=== PATIENT | male | born 1995 | race Caucasian/White ===

== ENCOUNTER 2019-04-30 07:06 | Day surgery (SDC) | payer MEDICAID, SELFPAY ==
--- NOTE | 2019-04-24 09:33 | EKG12_ITS ---
Test Reason : PREOP Blood Pressure : / mmHG Vent. Rate : 056 BPM Atrial Rate : 056 BPM P-R Int : 140 ms QRS Dur : 092 ms QT Int : 394 ms P-R-T Axes : 024 069 041 degrees QTc Int : 380 ms Sinus bradycardia Nonspecific T wave abnormality Abnormal ECG Confirmed by JANINE MARTINEZ, GIULIA ([id number]), makeup editor LILY MUÑIZ ([id number] on 04/26/2019 11:02:23 AM Referred By: Arnold Thayer Confirmed By:GIULIA MEHTA MD
[2019-04-24 11:22] LABS: Hematocrit 48.2 % (40-54); Hemoglobin 16.2 g/dL (13.0-16.5); Mean Corp Hgb Conc 33.6 g/dL (32-36); Mean Corpuscular Hgb 33.9 pg (27.0-32.0); Mean Corpuscular Volume 100.8 fL (80-94); Mean Platelet Vol. 9.8 fl (6.2-12.0); Platelet Count 268 K/mm3 (150-450); RBC Distribution Width CV 11.8 % (11.6-14.6); RBC Distribution Width SD 44.2 fl (35.1-43.9); Red Blood Count 4.78 M/mm3 (4.6-6.2); White Blood Count 6.7 K/mm3 (4.4-11.0)
[2019-04-24 11:54] LABS: Anion Gap 3 (5-15); BUN 18 mg/dL (7-18); BUN/Creat Ratio 14.9 RATIO (10-20); Calcium,Total 9.6 mg/dL (8.5-10.1); Chloride 106 mmol/L (98-107); Creatinine, Serum 1.21 mg/dL (0.70-1.30); EST Glomerular Filtration Rate 78 mL/min (>60); Est Glom Filt Rate - Afr Amer 95 mL/min (>60); Glucose 78 mg/dL (74-106); Sodium Level 140 mmol/L (136-145)
[2019-04-30] VITALS (7 sets, daily range): BP systolic 118–137; BP diastolic 77–90; PULSE 80–108; RESP 16; TEMP 36.3–37.1; O2SAT 91–100; BMI 27.9
[2019-04-30] MEDS: Lactated Ringers 1,000 ML 100 ML IV (08:02)
--- NOTE | 2019-04-30 08:18 | DCINST_ITS ---
You will use the following diet at home:: No restrictions Discharge Activity: May not drive while taking narcotic pain medications. Call your doctor if your incision/area has: Increased Pain/ Swelling Additional Dressing/Incision Instructions:: nasal saline to both nostrils 5 times daily. mupirocin ointment to nostrils and incision twice daily. keep bridge of nose dry, except get it very wet the morning of your follow up appointment. sleep with head of bed elevated. Allergies/Adverse Reactions: Allergies No Known Allergies Allergy (Verified 04/30/19 07:43) Medications to take at Discharge Fluticasone 0.05% [Flonase Nasal [place]] 1 spray NASAL DAILY PRN 04/23/19 Multivitamin [Multiple Vitamins] 1 ea PO DAILY 04/23/19 Ranitidine HCl [Zantac] 150 mg PO BID 04/23/19 Hydrocodone/Acetaminophen [[place] 5-325 Tablet] 1 ea PO Q6H PRN 5 Days #20 tab 04/30/19 Smz/Tmp Ds [Bactrim Ds] 1 tab PO BID #12 tab 04/30/19 The following prescriptions were given: Smz/Tmp Ds [Bactrim Ds] 1 tab PO BID #12 tab Prescription Printed Hydrocodone/Acetaminophen [[place] 5-325 Tablet] 1 ea PO Q6H PRN 5 Days #20 tab PRN Reason: Pain Score 1-10/10 Prescription Printed Orders to be completed after discharge: 12 Lead EKG [[facility]] Time Frame: 04/23/19, Facility: [facility], Location: Cardiovascular Services Basic Metabolic Profile (BMP) Time Frame: 04/23/19, Facility: [facility], Location: Laboratory CBC-Complete Blood Cnt No Diff Time Frame: 04/23/19, Facility: [facility], Location: Laboratory Primary Care Physician: Aren Mejia MD [Primary Care Provider] - Test Results: Test results from this visit will be discussed in further detail at your follow- up appointment, if applicable. Please Follow Up With: Arnold Thayer MD When: 1 week
--- NOTE | 2019-04-30 08:22 | PCM.OPRPT ---
Problem List (1) Nasal congestion Status: Chronic (2) Nasal septal deviation Status: Chronic (3) Nasal turbinate hypertrophy Status: Chronic (4) Incompetent nasal valve Status: Chronic (5) Closed fracture of nasal bone Status: Chronic Report of Operation Date of Procedure: 04/30/19 Pre-Operative Diagnosis: 1. nasal congestion. 2. closed fracture nasal boned. 3. internal nasal valve collapse, right and left. 4. nasal septal deviation. 5. inferior turbinate hypertrophy Post-Operative Diagnosis: 1. nasal congestion. 2. closed fracture nasal boned. 3. internal nasal valve collapse, right and left. 4. nasal septal deviation. 5. inferior turbinate hypertrophy Surgery/Procedure Performed:: 1. open septorhinoplasty. 2. correction internal nasal valve collapse, right and left. 3. submucous resection inferior turbinates. 4. open reduction nasal bone fracture Type of Anesthesia:: General Description of Procedure: on the day of the procedure, after appropriate informed consent was obtained, the patient was brought to the operating room and placed in supine position on the operating table. he was placed under general endotracheal anesthesia by the anesthesiologist. the endotracheal tube was secured, tegaderm was placed on the eyes. the table was rotated 90 degrees toward the surgeon. the nose was injected with lidocaine/epinephrine. the face was prepped and draped in sterile fashion. the bilateral nasal cavities were decongested with oxymetazoline-soaked pledgets. an inverted v columellar incision was made with a [place] blade. this traversed into right and left marginal incisions using three point retraction and an iris scizzor. the right and left scroll region and the upper lateral cartilages were dissected with an iris scizzor. the medial crura were lateralized and the anterior septal angle was found. submucoperichondrial flaps were raised on the right and left using a [place] elevator. this was taken posteriorly to the bony/cartilaginous angle and inferiorly to the maxillary crest. the upper lateral cartilages were disarticulated from the nasal septum using a 15 blade. given his severe septal deformity and numerous fracture lines through his cartilaginous septum, it was deemed necessary to perform an anterior septal reconstruction. a 1cm x 2 cm area of cartilaginous septum was preserved off of the keystone area. the remainder of the septum was removed using a D knife and a [place] elevator. this was fashioned into the correct shape and sutured to a PDS plate with numerous 4-0 PDS and saved for future use. deviated portions of the perpendicular plate of the ethmoid and vomer were removed using a rosalio rubio. the junction of the right and left nasal dorsum / lateral nasal sidewalls were incised 2mm using a [place] blade. medial and lateral osteotomies were made with a 2mm osteotome on the right then left. the bony dorsum was brought to the midline. of note, the nasal septal remnant had a fracture line through it in a cranial/caudal dimension; however, the integrity was not compromised. the previously fashioned septum was placed as a left internal handkerchief maker graft and sutured between the left upper lateral cartilage and nasal septal remnant with 4-0 PDS. this was also sutured to the maxillary crest periosteum. a 1cm x 2mm right internal handkerchief maker graft from harvested cartilage was performed and sutured into place with 4-0 PDS. the mucoperichondrium was reapproximated with 4-0 chromic quilting sutures, several incorporating the septal reconstruction. the head of the right and left inferior turbinates were injected with lidocaine/epinephrine/ the head of the left inferior turbinate was incised with a #15 blade, dissected using a [place] elevator, reduced using suction electrocautery and outfractured using a boies elevator. the head of the right inferior turbinate was incised with a #15 blade, dissected using a [place] elevator, reduced using suction electrocautery and outfractured using a boies elevator. the inverted V columellar incision was reapproximated with 7-0 vicryl and the marginal incisions with a single 4-0 chromic. a dorsal nasal splint was placed and wyatt splints were inserted and sutured. an orogastric tube was inserted and contents evacuated. the table was rotated 90 degrees toward the anesthesiologist where he was subsequently awoken and taken to the PACU in stable condition.
[2019-04-30] MEDS: Oxymetazoline 0.05% 1 SPRAY SPRAY.BTL 15 SPRAY (09:30)
[2019-04-30] MEDS: Mupirocin Ointment 22gm Tube 1 APPLIC (10:00)
== END 2019-04-30 13:56 | disposition home or self-care (01) ==
LOC: SDC 07:07 → AC 07:07
PROVIDERS: Family Provider Family Medicine; PCP Family Medicine; Referring Provider Otolaryngology; Visit Provider Otolaryngology
PROC: (CPT 21325; principal; 2019-04-30 08:25)
DX: J34.2 Deviated nasal septum (principal); J34.3 Hypertrophy of nasal turbinates; S02.2XXA Fracture of nasal bones, initial encounter for closed fracture; R09.81 Nasal congestion; K21.9 Gastro-esophageal reflux disease without esophagitis; Z79.899 Other long term (current) drug therapy; W21.03XA Struck by baseball, initial encounter; Y93.64 Activity, baseball; Y92.320 Baseball field as the place of occurrence of the external cause; Y99.8 Other external cause status
CPT/HCPCS: 21325; 30140; 30420; 30465; 36415; 80048; 85027; 93005; J7120; J2405